=== PATIENT | female | born 2005 | race African-American/Black ===

== ENCOUNTER 2024-05-31 15:18 | Emergency (ER) | payer MEDICAID ==
[~2024-05-31] VITALS: Ht 167.6 cm; Wt 59.0 kg
[2024-05-31 15:31] VITALS: BP 144/80; TEMP 98.9; O2SAT 95
== END 2024-05-31 18:16 | disposition left against medical advice (07) ==
LOC: ER 15:23
DX: R69 Illness, unspecified (principal); Z53.21 Procedure and treatment not carried out due to patient leaving prior to being seen by health care provider